=== PATIENT | female | born 1975 | race Caucasian/White ===

== ENCOUNTER 2019-12-31 11:57 | Outpatient (CLI) | payer OTHER, SELFPAY ==
[2019-12-31 12:32] LABS: Influenza A by IFA Negative (Negative)
[2019-12-31 12:33] LABS: Influenza B by IFA Negative (Negative)
== END 2019-12-31 11:58 | disposition home or self-care (01) ==
LOC: LAB 12:01
PROVIDERS: Family Provider Registered Nurse; PCP Registered Nurse; Visit Provider Student in an Organized Health Care Education/Training Program
DX: Z01.89 Encounter for other specified special examinations (principal)
CPT/HCPCS: 87804

== ENCOUNTER → 2020-01-26 15:38 | Outpatient (BNVA) | payer OTHER, SELFPAY | PROVIDERS: Family Provider Registered Nurse; PCP Registered Nurse; Visit Provider Urology | DX: R35.0 Frequency of micturition (principal) | CPT/HCPCS: 81001 ==

== ENCOUNTER 2022-11-06 09:00 | Emergency (ER) | payer OTHER, SELFPAY ==
[2022-11-06 09:01] VITALS: BP 137/85; PULSE 70; RESP 20; O2SAT 100; BMI 26.4
[2022-11-06 09:15] VITALS: TEMP 35.9
--- NOTE | 2022-11-06 09:21 | ED_ITS ---
Documented by User: BREANNE Case 11/06/22 16:55 HPI - Female Genitourinary General: Chief complaint: Urogenital-Female Stated complaint: Abd pain Time Seen by Provider: 11/06/22 09:07 History of Present Illness: Patient is a 46-year-old female comes to the ED with right flank pain. Patient has a history of kidney stones and says this pain feels just like past kidney stones. Flank pain started at 7:00 this morning and it woke her up. Pain is rated 10 out of 10 and is all located in her right flank and does not radiate anywhere else. She endorses having some nausea but denies any emesis. Denies any fevers, dysuria or hematuria. Associated symptoms: Deny abdominal pain, headache(s) or nausea Review of Systems Const: Denies: fever(s), chills or fatigue Eyes: Denies: change in vision or eye discomfort ENMT: Denies: throat pain, odynophagia, nasal discharge or nasal congestion Card: Denies: chest pain, palpitations, edema, swelling of feet/ankles, dyspnea on exertion or orthopnea Resp: Denies: dyspnea, productive cough or non-productive cough GI: Denies: abdominal pain, nausea, vomiting, diarrhea, constipation or hematochezia : Reports: flank pain (right flank); Denies: dysuria or hematuria Musc: Denies: neck pain, back pain or extremity swelling Skin/Breast: Denies: rash or new lesions Neuro: Denies: headache(s), numbness in extremities or weakness in extremities PFS ED PFSH: Medical History No pertinent family history Renal colic on left side Surgical History Hx of cholecystectomy Family History Father Hypertension Other CAD (coronary artery disease) Social History Smoking and tobacco status: current some day smoker Alcohol intake: current Alcohol intake frequency: 0-2 Drinks per Day Adopted: No Caregiver/support person: No Marital status: Current occupational status: employed History of recent travel: No Physical Exam Const: COMMON NORMALS: patient oriented x3 and alert GENERAL APPEARANCE: cooperative; not comfortable (Patient appears uncomfortable and in some pain.) HENMT: COMMON NORMALS: normocephalic HEAD & SCALP: normocephalic MOUTH: Normal oral and palatal mucosa present THROAT: posterior oropharynx normal and uvula midline Neck/C-Spine: COMMON NORMALS: supple GENERAL: Yes normal visual inspection Resp: COMMON NORMALS: normal respiratory effort, No retractions, No use of accessory muscles and clear to auscultation bilaterally AUSCULTATION: clear to auscultation bilaterally Cardio: COMMON NORMALS: regular rate, regular rhythm, S1 normal heart sound present, S2 normal heart sound present, No gallops present (Cardio), No clicks present (Cardio), No murmurs present (Cardio) and Peripheral pulses 2+ throughout RATE: regular rate RHYTHM: regular rhythm HEART SOUNDS: S1 normal heart sound present and S2 normal heart sound present PERIPHERAL PULSES: Peripheral pulses 2+ throughout GI: COMMON NORMALS: Normal to inspection, nondistended, normoactive bowel sounds present, Soft to palpation, non-tender and no masses PALPATION: Yes Soft to palpation : BLADDER/KIDNEY EXAM: Yes CVA tenderness on the right Back/Pelvis: GENERAL BACK: Yes CVA tenderness Extremity: COMMON NORMALS: normal to inspection Neuro: COMMON NORMALS: patient oriented x3 SENSORIUM/ORIENTATION: Yes alert GAIT: Yes Normal gait present Skin: GENERAL SKIN EXAM: dry skin Course Vital Signs: Vital signs: Vital Signs Temperature 96.7 F L 11/06/22 09:15 Pulse Rate 84 11/06/22 12:00 Respiratory Rate 14 11/06/22 12:00 Blood Pressure 107/75 11/06/22 12:00 Pulse Oximetry 97 11/06/22 12:00 Oxygen Delivery Me thod 11/06/22 12:00 [facility] - Female Medical Decision Making Patient is a 46-year-old female comes to the ED with right flank pain. She has a history of kidney stones and states pain feels like past kidney stones. Denies any other symptoms. Vitals are stable. Exam shows CVA tenderness but rest of exam is benign. White blood cell count 11.2 and the rest of CBC, CMP were unremarkable. UA shows a lot of blood but no signs of any UTI. CT of abdomen pelvis showed an obstructing 4.7 mm stone in the distal right ureter. It showed some mild inflammatory stranding of the right kidney. I placed an order with case management for patient be referred to Dr. Diamond for follow-up on kidney stone. Patient's pain was controlled with IV Toradol and Zofran. She was stable for discharge home and sent with a prescription for hydrocodone, tamsulosin and Zofran. She was instructed on straining her urine to catch stone and take to Dr. Diamond's office for further evaluation. Strict return to ED precautions given. Patient understood and agreed with plan Lab Data I reviewed the patient's lab results. 11/06/22 09:32 11/06/22 09:32 Radiology Impressions Abdomen/Pelvis CT 11/06/22 09:21 IMPRESSION: 1. Obstructing 4.7 mm calculus in the pelvis with moderate RIGHT hydronephrosis and ureterectasis. Mild inflammatory stranding about RIGHT kidney. 2. Prior hysterectomy. 3. Prior gastric sleeve procedure with small esophageal hiatal hernia. 4. Prior cholecystectomy. Notified BREANNE Case at 11/06/2022 11:05 AM. Laboratory Results WBC 11.2 10^3/uL (4.0-10.0) H 11/06/22 09:32 RBC 4.41 10^6/uL (4.1-5.3) 11/06/22:32 Hgb 13.7 g/dL (11.5-15.3) 11/06/22:32 Hct 42.3 % (37.0-47.0) 11/06/22: MCV 95.9 fl (81-99) 11/06/22: MCH 31.1 pg (28.0-34.0) 11/06/22 09: MCHC 32.4 g/dL (30.0-36.0) 11/06/22: RDW 12.8 % (12.1-15.1) 11/06/22: Plt Count 301 10^3/cmm (130-400) 11/06/22: MPV 9.4 fL (7.4-10.4) 11/06/22: Neut % (Auto) 70.0 % 11/06/22: Lymph % (Auto) 20.4 % 01/10/23 09:32 Sac % (Auto) 6.8 % 11/06/22 09:32 Eos % (Auto) 1.8 % 11/06/22 09:32 Baso % (Auto) 0.5 % 11/06/22 09:32 Neut # (Auto) 7.84 10^3/uL (1.8-7.7) H 11/06/22 09:32 Lymph # (Auto) 2.3 10^3/uL (0.8-4.8) 11/06/22 09:32 Sac # (Auto) 0.8 10^3/uL (0.2-0.9) 11/06/22 09:32 Eos # (Auto) 0.2 10^3/uL (0.0-0.8) 11/06/22 09:32 Baso # (Auto) 0.1 10^3/uL (0.0-0.1) 11/06/22 09:32 Nucleated RBC % (auto) 0 % 11/06/22 09:32 Nucleated RBCs # 0.0 /100WBC 11/06/22 09:32 Sodium 142 mmol/L (136-145) 11/06/22 09:32 Potassium 3.8 mmol/L (3.5-5.1) 11/06/22 09:32 Chloride 104 mmol/L (98-107) 11/06/22 09:32 Carbon Dioxide 25 mmol/L (22-29) 11/06/22 09:32 Anion Gap 16.8 (5-19) 11/06/22 09:32 BUN 20 mg/dL (6-20) 11/06/22 09:32 Creatinine 0.6 mg/dL (0.5-0.9) 11/06/22 09:32 GFR Calculation 108.6 mL/min (90-130) 11/06/22 09:32 Glucose 121 mg/dL (65-115) H 11/06/22 09:32 Calculated Osmolality 298 mOsm/kg (285-295) H 11/06/22 09:32 Calcium 9.0 mg/dL (8.5-10.5) 11/06/22 09:32 Total Bilirubin 0.2 mg/dL (0.15-1.2) 11/06/22 09:32 AST 28 U/L (0-32) 11/06/22 09:32 ALT 41 U/L (0-33) H 11/06/22 09:32 Alkaline Phosphatase 94 U/L (35-105) 11/06/22 09:32 Total Protein 6.5 g/dL (6.6-8.7) L 11/06/22 09:32 Albumin 4.4 g/dL (3.5-5.2) 11/06/22 09:32 Globulin 2.1 g/dL (1.3-4.6) 11/06/22 09:32 Lipase 42 U/L (13-60) 11/06/22 09:32 HCG, Qual Negative (Negative) 11/06/22 09:32 Urine Color Yellow (Yellow) 11/06/22 10:30 Urine Appearance Cloudy (CLEAR) A 11/06/22 10:30 Urine pH 9 (5-7) H 11/06/22 10:30 Ur Specific [place] 1.010 (1.005-1.030) 11/06/22 10:30 Urine Protein Neg (Negative) 11/06/22 10:30 Urine Glucose (UA) Norm (Normal) 11/06/22 10:30 Urine Ketones 1+ (Negative) H 11/06/22 10:30 Urine Blood 3+ (Negative) H 11/06/22 10:30 Urine Nitrate Negative (Negative) 11/06/22 10:30 Urine Bilirubin Neg (Negative) 11/06/22 10:30 Prot Sulfosalicylic Acd Negative (Negative) 11/06/22 10:30 Urine Urobilinogen Norm mg/dL (Negative) 11/06/22 10:30 Ur Leukocyte Esterase Negative (Negative) 11/06/22 10:30 Urine RBC Too numerous to cnt /hpf (0-2) H 11/06/22 10:30 Urine WBC 0-4 /hpf (0-5) H 11/06/22 10:30 Ur Squamous Epith Cells 5-10 /hpf (0-5) H 11/06/22 10:30 Amorphous Sediment 1+ /hpf 11/06/22 10:30 Urine Bacteria 1+ /hpf (NONE) H 11/06/22 10:30 Discharge Plan Discharge Patient Disposition: Home Clinical Impression: Kidney stone on right side Condition: Stable Prescriptions: New tamsulosin 0.4 mg capsule 0.4 mg PO DAILY Qty: 10 0RF Rx Instructions: Take 1 tablet daily until you passed kidney stone. ondansetron 4 mg tablet,disintegrating 4 mg PO Q8H PRN (Reason: nausea and vomiting) Qty: 15 0RF No Action multivitamin Tablet 1 tab PO BID citalopram 40 mg tablet 40 mg PO DAILY Xanax 0.5 mg Tablet 0.5 mg PO DAILY PRN (Reason: Anxiety) Calcium 500 500 mg calcium (1,250 mg) Tablet 500 mg PO BID pantoprazole 40 mg tablet,delayed release (DR/EC) 40 mg PO BID iron 325 mg (65 mg iron) Tablet 325 mg PO BID Vitamin B-12 1,000 mcg Tablet, Sublingual 1,000 mcg SUBLINGUAL DAILY Ambien 10 mg Tablet 10 mg PO BEDTIME PRN (Reason: Sleep) Discharge Orders: Discharge ED (Routine); Ordered 11/06/22 Ordered By: Ghulam Naidu Referrals: Jana Daniel FNP [Primary Care Provider] - Discharge Diet: Regular Discharge Activity: Increase activity as tolerated Patient Instructions: Kidney Stones (ED), Opioid Safety Activity Restrictions/Additional Instructions: Follow-up with medical provider as directed. Case management should be contacting you in the next several days to set up an appointment with Dr. Diamond the urologist. Strain urine to catch stone and drink lots of fluid to stay hydrated and help pass stone. Take medications as prescribed. Return to the ER or your medical provider if condition worsens. Please read and understand discharge instructions. If any questions, please ask. Coding Level of Care Code ED [employer] Agent for Chg Fwd Exam Comprehensive Documented by User: Jayjay Lopez DO 11/06/22 17:44 HPI - Female Genitourinary General: Chief complaint: Urogenital-Female Stated complaint: Abd pain Time Seen by Provider: 11/06/22 09:07 PFSH ED PFSH: Medical History No pertinent family history Renal colic on left side Surgical History Hx of cholecystectomy Family History Father Hypertension Other CAD (coronary artery disease) Social History Smoking and tobacco status: current some day smoker Alcohol intake: current Alcohol intake frequency: 0-2 Drinks per Day Adopted: No Caregiver/support person: No Marital status: Current occupational status: employed History of recent travel: No Course Vital Signs: Vital signs: Vital Signs Temperature 96.7 F L 11/06/22 09:15 Pulse Rate 84 11/06/22 12:00 Respiratory Rate 14 11/06/22 12:00 Blood Pressure 107/75 11/06/22 12:00 Pulse Oximetry 97 11/06/22 12:00 Oxygen Delivery Me thod 11/06/22 12:00 MDM - Female Medical Decision Making Patient is a 46-year-old female comes to the ED with right flank pain. She has a history of kidney stones and states pain feels like past kidney stones. Denies any other symptoms. Vitals are stable. Exam shows CVA tenderness but rest of exam is benign. White blood cell count 11.2 and the rest of CBC, CMP were unremarkable. UA shows a lot of blood but no signs of any UTI. CT of abdomen pelvis showed an obstructing 4.7 mm stone in the distal right ureter. It showed some mild inflammatory stranding of the right kidney. I placed an order with case management for patient be referred to Dr. Diamond for follow-up on kidney stone. Patient's pain was controlled with IV Toradol and Zofran. She was stable for discharge home and sent with a prescription for hydrocodone, tamsulosin and Zofran. She was instructed on straining her urine to catch stone and take to Dr. Diamond's office for further evaluation. Strict return to ED precautions given. Patient understood and agreed with plan Chart reviewed and patient discussed with midlevel. Agree with assessment and plan. Lab Data 11/06/22 09:32 11/06/22 09:32 Radiology Impressions Abdomen/Pelvis CT 11/06/22 09:21 IMPRESSION: 1. Obstructing 4.7 mm calculus in the pelvis with moderate RIGHT hydronephrosis and ureterectasis. Mild inflammatory stranding about RIGHT kidney. 2. Prior hysterectomy. 3. Prior gastric sleeve procedure with small esophageal hiatal hernia. 4. Prior cholecystectomy. Notified BREANNE Case at 11/06/2022 11:05 AM. Laboratory Results WBC 11.2 10^3/uL (4.0-10.0) H 11/06/22 09:32 RBC 4.41 10^6/uL (4.1-5.3) 11/06/22 09:32 Hgb 13.7 g/dL (11.5-15.3) 11/06/22 09:32 Hct 42.3 % (37.0-47.0) 11/06/22 09:32 MCV 95.9 fl (81-99) 11/06/22 09:32 MCH 31.1 pg (28.0-34.0) 11/06/22 09: MCHC 32.4 g/dL (30.0-36.0) 11/06/22 09:32 RDW 12.8 % (12.1-15.1) 11/06/22 09:32 Plt Count 301 10^3/cmm (130-400) 11/06/22 09:32 MPV 9.4 fL (7.4-10.4) 11/06/22 09:32 Neut % (Auto) 70.0 % 11/06/22 09:32 Lymph % (Auto) 20.4 % 11/06/22 09:32 Sac % (Auto) 6.8 % 11/06/22 09:32 Eos % (Auto) 1.8 % 11/06/22 09:32 Baso % (Auto) 0.5 % 11/06/22 09:32 Neut # (Auto) 7.84 10^3/uL (1.8-7.7) H 11/06/22 09:32 Lymph # (Auto) 2.3 10^3/uL (0.8-4.8) 11/06/22 09:32 Sac # (Auto) 0.8 10^3/uL (0.2-0.9) 11/06/22 09:32 Eos # (Auto) 0.2 10^3/uL (0.0-0.8) 11/06/22 09:32 Baso # (Auto) 0.1 10^3/uL (0.0-0.1) 11/06/22 09:32 Nucleated RBC % (auto) 0 % 11/06/22 09:32 Nucleated RBCs # 0.0 /100WBC 11/06/22 09:32 Sodium 142 mmol/L (136-145) 11/06/22 09:32 Potassium 3.8 mmol/L (3.5-5.1) 11/06/22 09:32 Chloride 104 mmol/L (98-107) 11/06/22 09:32 Carbon Dioxide 25 mmol/L (22-29) 11/06/22 09:32 Anion Gap 16.8 (5-19) 11/06/22 09:32 BUN 20 mg/dL (6-20) 11/06/22 09:32 Creatinine 0.6 mg/dL (0.5-0.9) 11/06/22 09:32 GFR Calculation 108.6 mL/min (90-130) 11/06/22 09:32 Glucose 121 mg/dL (65-115) H 11/06/22 09:32 Calculated Osmolality 298 mOsm/kg (285-295) H 11/06/22 09:32 Calcium 9.0 mg/dL (8.5-10.5) 11/06/22 09:32 Total Bilirubin 0.2 mg/dL (0.15-1.2) 11/06/22 09:32 AST 28 U/L (0-32) 11/06/22 09:32 ALT 41 U/L (0-33) H 11/06/22 09:32 Alkaline Phosphatase 94 U/L (35-105) 11/06/22 09:32 Total Protein 6.5 g/dL (6.6-8.7) L 11/06/22 09:32 Albumin 4.4 g/dL (3.5-5.2) 11/06/22 09:32 Globulin 2.1 g/dL (1.3-4.6) 11/06/22 09:32 Lipase 42 U/L (13-60) 11/06/22 09:32 HCG, Qual Negative (Negative) 11/06/22 09:32 Urine Color Yellow (Yellow) 11/06/22 10:30 Urine Appearance Cloudy (CLEAR) A 01/10/23 10:30 Urine pH 9 (5-7) H 11/06/22 10:30 Ur Specific [place] 1.010 (1.005-1.030) 11/06/22 10:30 Urine Protein Neg (Negative) 11/06/22 10:30 Urine Glucose (UA) Norm (Normal) 11/06/22 10:30 Urine Ketones 1+ (Negative) H 11/06/22 10:30 Urine Blood 3+ (Negative) H 11/06/22 10:30 Urine Nitrate Negative (Negative) 11/06/22 10:30 Urine Bilirubin Neg (Negative) 11/06/22 10:30 Prot Sulfosalicylic Acd Negative (Negative) 11/06/22 10:30 Urine Urobilinogen Norm mg/dL (Negative) 11/06/22 10:30 Ur Leukocyte Esterase Negative (Negative) 11/06/22 10:30 Urine RBC Too numerous to cnt /hpf (0-2) H 11/06/22 10:30 Urine WBC 0-4 /hpf (0-5) H 11/06/22 10:30 Ur Squamous Epith Cells 5-10 /hpf (0-5) H 11/06/22 10:30 Amorphous Sediment 1+ /hpf 11/06/22 10:30 Urine Bacteria 1+ /hpf (NONE) H 11/06/22 10:30 Discharge Plan Discharge Patient Disposition: Home Clinical Impression: Kidney stone on right side Condition: Stable Prescriptions: New tamsulosin 0.4 mg capsule 0.4 mg PO DAILY Qty: 10 0RF Rx Instructions: Take 1 tablet daily until you passed kidney stone. ondansetron 4 mg tablet,disintegrating 4 mg PO Q8H PRN (Reason: nausea and vomiting) Qty: 15 0RF No Action multivitamin Tablet 1 tab PO BID citalopram 40 mg tablet 40 mg PO DAILY Xanax 0.5 mg Tablet 0.5 mg PO DAILY PRN (Reason: Anxiety) Calcium 500 500 mg calcium (1,250 mg) Tablet 500 mg PO BID pantoprazole 40 mg tablet,delayed release (DR/EC) 40 mg PO BID iron 325 mg (65 mg iron) Tablet 325 mg PO BID Vitamin B-12 1,000 mcg Tablet, Sublingual 1,000 mcg SUBLINGUAL DAILY Ambien 10 mg Tablet 10 mg PO BEDTIME PRN (Reason: Sleep) Discharge Orders: Discharge ED (Routine); Ordered 11/06/22 Ordered By: Ghulam Naidu Referrals: Jana Daniel FNP [Primary Care Provider] - Discharge Diet: Regular Discharge Activity: Increase activity as tolerated Patient Instructions: Kidney Stones (ED), Opioid Safety Activity Restrictions/Additional Instructions: Follow-up with medical provider as directed. Case management should be contacting you in the next several days to set up an appointment with Dr. Diamond the urologist. Strain urine to catch stone and drink lots of fluid to stay hydrated and help pass stone. Take medications as prescribed. Return to the ER or your medical provider if condition worsens. Please read and understand discharge instructions. If any questions, please ask. Coding Level of Care Code ED [employer] Agent for Chg Fwd Exam Comprehensive
--- NOTE | 2022-11-06 09:21 | CT_ITS ---
WS: [id number] CT ABDOMEN PELVIS TECHNIQUE: Noncontrast CT of the abdomen and pelvis with coronal and sagittal reformatted images. CLINICAL INFORMATION: right flank pain COMPARISON: CT 2019 DLP: 622.[address] scans at [facility] use at least one of these dose optimization techniques: automated e xposure control; mA and/or kV adjustment per patient size (includes targeted exams where dose is matc hed to clinical indication); or iterative reconstruction. FINDINGS: Normal appendix in the RIGHT lower quadrant. Moderate RIGHT hydronephrosis with moderate RI GHT ureterectasis. Obstructing calculus in the pelvis measuring 4.7 mm. Mild inflammatory stranding a nd edema about the RIGHT kidney. No hydronephrosis in the LEFT kidney. Nonobstructing LEFT calyceal t ip calculi. RIGHT adrenal adenoma measuring 17 mm. Noncontrast spleen is normal. Normal noncontrast pancreas. Nor mal caliber abdominal aorta. Chronic pars defects L5-S1. No significant anterolisthesis. Prior hysterectomy. Bilateral breast implants. Postoperative changes gastric sleeve procedure. Calcif ied granuloma RIGHT lower lobe. Small esophageal hiatal hernia. Cholecystectomy. CT/CT kidney stone [id number] IMPRESSION: 1. Obstructing 4.7 mm calculus in the pelvis with moderate RIGHT hydronephrosi s and ureterectasis. Mild inflammatory stranding about RIGHT kidney. 2. Prior hysterectomy. 3. Prior gastric sleeve procedure with small esophageal hiatal hernia. 4. Prior cholecystectomy. Notified BREANNE Case at 11/06/2022 11:05 AM.
[2022-11-06 09:46] VITALS: RESP 16; O2SAT 98
[2022-11-06] MEDS: morphine 4 mg/mL SDV 1 mL IVP (09:46)
[2022-11-06] MEDS: sodium chloride 0.9% 1,000 ML 999 ML IV (09:46)
[2022-11-06] MEDS: ondansetron 2 mg/ML SDV 2 mL 4 MG IVP (09:46)
[2022-11-06 09:55] LABS: Basophils # 0.1 10^3/uL (0.0-0.1); Basophils % 0.5 %; Eosinophils # 0.2 10^3/uL (0.0-0.8); Eosinophils % 1.8 %; Hematocrit 42.3 % (37.0-47.0); Hemoglobin 13.7 g/dL (11.5-15.3); Lymphocytes # 2.3 10^3/uL (0.8-4.8); Lymphocytes % 20.4 %; Mean Corpuscular HGB Conc 32.4 g/dL (30.0-36.0); Mean Corpuscular Hemoglobin 31.1 pg (28.0-34.0); Mean Corpuscular Volume 95.9 fl (81-99); Mean Platelet Volume 9.4 fL (7.4-10.4); Monocytes # 0.8 10^3/uL (0.2-0.9); Monocytes % 6.8 %; Neutrophils # 7.84 10^3/uL (1.8-7.7); Nucleated Red Blood Cells % 0 %; Platelet Count 301 10^3/cmm (130-400); Red Blood Count 4.41 10^6/uL (4.1-5.3); Red Cell Distribution Width 12.8 % (12.1-15.1); White Blood Count 11.2 10^3/uL (4.0-10.0)
[2022-11-06 10:03] VITALS: RESP 16; O2SAT 98
[2022-11-06] MEDS: HYDROmorphone 1 mg/mL INJ 1 mL IVP (10:03)
[2022-11-06 10:10] LABS: HCG, Serum Qual Negative (Negative)
[2022-11-06 10:22] LABS: Alanine Aminotransferase 41 U/L (0-33); Albumin Level 4.4 g/dL (3.5-5.2); Alkaline Phosphatase 94 U/L (35-105); Anion Gap 16.8 (5-19); Aspartate Amino Transferase 28 U/L (0-32); Blood Urea Nitrogen 20 mg/dL (6-20); Carbon Dioxide 25 mmol/L (22-29); Chloride 104 mmol/L (98-107); Globulin 2.1 g/dL (1.3-4.6); Glomerular Filtration Rate 108.6 mL/min (90-130); Glucose 121 mg/dL (65-115); Lipase 42 U/L (13-60); Osmolality Calculated 298 mOsm/kg (285-295); Potassium 3.8 mmol/L (3.5-5.1); Sodium 142 mmol/L (136-145); Total Bilirubin 0.2 mg/dL (0.15-1.2); Total Protein 6.5 g/dL (6.6-8.7)
[2022-11-06 11:01] LABS: Bilirubin Urine Neg (Negative); Blood Urine 3+ (Negative); Glucose Urine UA Norm (Normal); Ketones Urine 1+ (Negative); Nitrate Urine Negative (Negative); Protein Urine Neg (Negative); Urine Appearance Cloudy (CLEAR); Urine Color Yellow (Yellow); pH Urine 9 (5-7)
[2022-11-06 11:02] LABS: Add Urine Microscopic? YES; Leukocyte Esterase Urine Negative (Negative); Sulfosalicylic Acid Urine Negative (Negative); Urobilinogen Urine Norm (Negative)
[2022-11-06 11:03] LABS: RBC Urine TOO NUMEROUS TO CNT /hpf (0-2); WBC Urine 0-4 /hpf (0-5)
[2022-11-06 11:04] LABS: Add Urine Culture? Yes; Amorphous Sediment Urine 1+ /hpf; Bacteria Urine 1+ /hpf
[2022-11-06] MEDS: metoclopramide 5 mg/mL SDV 2 mL 10 MG IVP (11:16)
[2022-11-06] MEDS: ketorolac 30 mg/mL INJ IVP (11:16)
[2022-11-06 12:00] VITALS: BP 107/75; PULSE 84; RESP 14; O2SAT 97
--- NOTE | 2022-11-06 14:33 | DCPLANNER ---
Addendum entered by Farheen Carolina 11/16/22 14:49: Patient had a follow up appointment scheduled with urology - patient did attend appointment Addendum entered by Farheen Carolina 11/07/22 11:44: Patient has a follow up appointment scheduled for Wednesday, November 09, 2022 at 12:[address] Diamond at urology. Clinic will call patient with appointment information. Original Note: manager sourcing had message to schedule a follow up appointment for patient with urology. manager sourcing sent patients information to the front office staff at urology. Patients information will be printed and reviewed. Clinic will call patient with appointment information.
== END 2022-11-06 12:12 | disposition home or self-care (01) ==
PROVIDERS: Emergency Provider Physician Assistant; PCP Registered Nurse
DX: N13.2 Hydronephrosis with renal and ureteral calculous obstruction (principal); F17.210 Nicotine dependence, cigarettes, uncomplicated
CPT/HCPCS: 74176; 80053; 81001; 83690; 84703; 85025; 87086; 96374; 96375; 99285; J1170; J1885; J2270; J2405; J2765; J7030

== ENCOUNTER 2022-11-09 11:11 | Outpatient (CLI) | payer OTHER, SELFPAY ==
--- NOTE | 2022-11-09 11:45 | XR_ITS ---
WS: [id number] XR KUB [id number] REASON FOR EXAM: STONES FINDINGS: Colon contents obscure both kidneys however one of the 2 calculi in the left kidney demonstrated on t he previous CT scan 11/06/2022 is identifiable. These calculi in the right kidney are not readily iden tifiable. There is an angular calcific density in the right pelvis currently this does not appear to represent the distal right ureteral calculus described on the CT scan. XR/XR KUB [id number] IMPRESSION: Limited visualization of the bilateral renal calculi shown on the CT scan of 07/2023. The previously demonstrated right ureteral calculus is not definitely identifie d.
== END 2022-11-09 11:12 | disposition home or self-care (01) ==
LOC: RAD 11:15
PROVIDERS: PCP Registered Nurse; Visit Provider Urology
DX: N20.0 Calculus of kidney (principal)
CPT/HCPCS: 74018

== ENCOUNTER → 2022-11-12 08:43 | Outpatient (BNVA) | payer OTHER, SELFPAY | PROVIDERS: PCP Registered Nurse; Visit Provider Urology | DX: N20.0 Calculus of kidney (principal); N20.9 Urinary calculus, unspecified; N20.1 Calculus of ureter | CPT/HCPCS: 81003 ==